=== PATIENT | male | born 1995 | race Caucasian/White ===

== ENCOUNTER 2019-08-08 14:09 | Inpatient (IN) | payer OTHER ==
[~2019-08-08] VITALS: Ht 182.8 cm; Wt 52.0 kg
--- NOTE | 2019-08-08 15:25 | NUR ---
23 year old MALE admitted to room # 530 for stabilization. Reports an addiction to CRACK/COCAINE last used 12 hours prior to admission. Compliant with admission procedure. Patient denies withdrawal symptoms at this time, but states he is starting to feel anxious. See assessment forms for additional information about patient status.
[2019-08-08] MEDS ORDERED: SUBOXONE 8 MG-1 EACH SL (15:27)
--- NOTE | 2019-08-08 16:18 | NUR ---
PATIENT MEETS [facility]. CINA=16. PATIENT WANTS TO FOLLOW UP WITH [facility] IN [place] FOR HIS AFTERCARE PLAN. NIDHI NUNEZ B.A. CADDYMASTER
[2019-08-08 17:18] LABS: BASO % 0.4 % (0.0-1.0); EOS # 0.3 10*3/uL (0.0-0.4); EOS % 3.7 % (1.0-4.0); HEMATOCRIT 42.7 % (42.0-52.0); HEMOGLOBIN 14.3 g/dl (14.0-18.0); LYMPH # 2.4 10*3/uL (1.3-4.4); LYMPH % 34.7 % (27.0-41.0); MEAN CELL VOLUME 102.4 fl (80.0-94.0); MEAN CORPUSCULAR HGB 34.3 pg (27.0-31.0); MEAN CORPUSCULAR HGB CONC 33.5 g/dl (33.0-37.0); MEAN PLATELET VOLUME 9.1 fl (9.6-12.3); MONO # 0.5 10*3/uL (0.1-1.0); MONO % 6.9 % (3.0-9.0); NEUT # 3.8 10*3/uL (2.3-7.9); NEUT % 54.2 % (47.0-73.0); PLATELET COUNT AUTOMATED 216 10*3/uL (130-400); RED BLOOD COUNT 4.17 10*6/uL (4.50-5.90)
[2019-08-08 17:28] LABS: INTERNATIONAL NORM RATIO 0.9 (2.0-3.5)
[2019-08-08 17:32] LABS: ALBUMIN 4.1 gm/dl (3.1-4.5); ALKALINE PHOSPHATASE 81 U/L (45-117); BUN 14 mg/dl (7-24); CHLORIDE 107 mmol/L (98-107); CREATININE 0.78 mg/dL (0.70-1.30); POTASSIUM 3.6 mmol/L (3.5-5.1); SGOT/AST 19 IU/L (3-35); SGPT/ALT 16 U/L (12-78); SODIUM 140 mmol/L (136-145); TOTAL PROTEIN 7.7 gm/dL (6.4-8.2)
[2019-08-08 17:45] LABS: BILIRUBIN NEGATIVE (NEGATIVE); BLOOD NEGATIVE (NEGATIVE); CLARITY SL CLOUDY (CLEAR); COLOR YELLOW (YELLOW); GLUCOSE NEGATIVE (NEGATIVE); KETONE NEGATIVE (NEGATIVE); LEUKO ESTERASE NEGATIVE (NEGATIVE); NITRITE NEGATIVE (NEGATIVE); PH 5.5 (5.0-9.0); UROBILINOGEN 0.2 E.U./dl (0.2-1.0)
[2019-08-08 17:48] LABS: ETHYL ALCOHOL < 3.0 mg/dl (<3)
[2019-08-08 17:53] LABS: URINE AMPHETAMINES < 1000 (1000ng/ml); URINE BARBITURATES < 200 (200ng/ml); URINE BENZODIAZEPINES < 200 (200ng/ml); URINE CANNABINOIDS (THC) < 50 (50ng/ml); URINE COCAINE > 300 (300ng/ml); URINE METHADONE < 300 (300ng/ml); URINE OPIATES < 300 (300ng/ml)
[2019-08-08 17:54] LABS: URINE PHENCYCLIDINE < 25 (25ng/ml)
[2019-08-08 18:04] LABS: EPITHELIAL CELLS 0-2
[2019-08-08 20:00] VITALS: BP 116/59
--- NOTE | 2019-08-08 21:00 | NUR ---
IN TO ASSESS PATIENT. PATIENT DIFFICULT TO AROUSE. WHEN AROUSED, HE STATED THAT ATIVAN IS REALLY KNOCKING HIM OUT AND WOULD REALLY LIKE TO NOT TAKE IT RIGHT NOW. CALL LIGHT WITHIN REACH, VSS. WILL MONITOR
--- NOTE | 2019-08-08 21:12 | NUR ---
SPOKE WITH DR. NO PERTAINING TO PATIENTS SCRIPT FOR SUBOXONE. STATD HE TAKES IT TWICE A DAY BUT IT WAS PUT IN FOR ONCE DAILY. HE STATED IT WAS OK TO CHANGE
--- NOTE | 2019-08-08 22:22 | NUR ---
NOTIFIED DR. PUENTES AT THIS TIME THAT PATIENT WAS DIFFICULT TO AROUSE EARLIER AND THAT HE ISN'T SURE IF HE WANTS TO TAKE ATIVAN ANYMORE BECAUSE ITS MAKING HIM EXTREMELY DROWSY. THIS NURSE STAED SHE WOULD WAIT TO SEE HOW THE PATIENT WAS DOING AT 2AM WHEN HIS NEXT DOSE
[2019-08-09] VITALS: BP 105/47
--- NOTE | 2019-08-09 02:27 | NUR ---
PT STILL SLEEPING. LETHARGIC WHEN WOKEN UP BUT RESPONSIVE. CALL LIGHT WITHIN REACH, WILL MONITOR
--- NOTE | 2019-08-09 02:33 | NUR ---
NOTIFIED DR. KIRK AT THIS TIME THAT PATIENT IS STILL EXTREMELY LETHARGIC. HE STATED TO DISCONTINUE THE PO SCHEDULED ATIVAN AND MAKE THE ATIVAN Q4H PRN JUST INCASE THE PATIENT WERE TO NEED THE ATIVAN AT SOME POINT
--- NOTE | 2019-08-09 03:36 | NUR ---
PATIENT CONTINUES TO SLEEP. NO DISTRESS NOTED. BREATHING IS EASY AND REGULAR ON ROOM AIR. CALL LIGHT WITHIN REACH
[2019-08-09 04:00] VITALS: BP 91/65
--- NOTE | 2019-08-09 06:00 | NUR ---
PATIENT HAD JUUL PODS SITTING ON BEDSIDE TABLE. ASKED PATIENT IF HE IS USING THE JUUL. HE SAID NO, IT WAS JUST WITH HIM. THIS NURSE ASKED FOR HIM TO PUT IT AWAY, OR WE WILL HAVE TO TAKE IT. HE VERBALIZED UNDERSTANDING. THIS NURSE ASKED IF HE WOULD LIKE NICTOINE SUPPLEMENT LIKE A PATCH GUM OR INHALER. HE STATED HED REALLY LIKE TO TRY THE GUM OR INHALER.
--- NOTE | 2019-08-09 07:21 | NUR ---
NOTIFIED DR. PELLETIER OF PATIENT REQUESTING TO TRY THE GUM OF THE INHALER FOR A NICOTINE SUPPLEMENT. SHE STATED SHE WOULD PUT IT IN
[2019-08-09 08:00] VITALS: BP 108/62
[2019-08-09 12:00] VITALS: BP 111/56
--- NOTE | 2019-08-09 14:44 | NUR ---
PATIENT IS GOING TO [facility] FOR HIS AFTERCARE PLAN. PATIENT AGREES AND UNDERSTANDS HIS AFTERCARE PLAN. PATIENT REPORTS THAT FAMILY WILL PICK HIM UP ONCE DISCHARGED. PATIENT AGREES AND UNDERSTANDS HIS AFTERCARE PLAN. NIDHI NUNEZ B.A. GAS CUTTER
--- NOTE | 2019-08-09 15:00 | NUR ---
ASSUMED CARE FOR THIS PT AT THIS TIME. DENIES ANY S/S OF WITHDRAWALS. NO C/O VOICED. CALL LIGHT IN REACH. PT TEACHING GIVEN ON THERMOSTAT IN ROOM AND LOCATION.
[2019-08-09 16:00] VITALS: BP 106/50
[2019-08-09 20:00] VITALS: BP 103/58
--- NOTE | 2019-08-09 21:51 | NUR ---
PT RESTING QUIETLY IN BED.
[2019-08-10] VITALS: BP 114/68
[2019-08-10 08:00] VITALS: BP 105/61
[2019-08-10 12:00] VITALS: BP 110/72
[2019-08-10] MEDS ORDERED: ATARAX,VISTARIL50 MG PO (14:10)
== END 2019-08-10 15:56 | disposition home or self-care (01) | DRG 774 ==
LOC: 5E 14:09
PROVIDERS: Hospitalist; ADMIT Internal Medicine
DX: F14.10 Cocaine abuse, uncomplicated (principal); F17.219 Nicotine dependence, cigarettes, with unspecified nicotine-induced disorders; R63.6 Underweight; R00.1 Bradycardia, unspecified; F41.9 Anxiety disorder, unspecified; Z80.6 Family history of leukemia; Z71.6 Tobacco abuse counseling; Z68.1 Body mass index [BMI] 19.9 or less, adult

== ENCOUNTER 2020-02-07 15:31 | Inpatient (IN) | payer OTHER ==
[~2020-02-07] VITALS: Ht 182.9 cm; Wt 53.1 kg
[~2020-02-07 15:31] MED LIST: ATARAX,VISTARIL50 MG PO; SUBOXONE 8 MG-1 EACH SL
--- NOTE | 2020-02-07 16:38 | NUR ---
PATIENT MEETS [facility]. CINA=15. PATIENT IS GOING TO [facility] IN [place] FOR HIS AFTERCARE PLAN. PATIENT'S HAS A SCHEDULED APPOINTMENT ON MONDAY, January. PATIENT AGREES AND UNDERSTANDS HIS AFTERCARE PLAN. NIDHI NUNEZ B.A. RESEARCH PROJECT MANAGER
[2020-02-07 16:50] LABS: BASO % 0.4 % (0.0-1.0); EOS # 0.2 10*3/uL (0.0-0.4); HEMATOCRIT 40.7 % (42.0-52.0); LYMPH # 1.9 10*3/uL (1.3-4.4); LYMPH % 26.9 % (27.0-41.0); MEAN CELL VOLUME 103.6 fl (80.0-94.0); MEAN CORPUSCULAR HGB 34.6 pg (27.0-31.0); MEAN CORPUSCULAR HGB CONC 33.4 g/dl (33.0-37.0); MEAN PLATELET VOLUME 9.6 fl (9.6-12.3); MONO # 0.6 10*3/uL (0.1-1.0); MONO % 8.2 % (3.0-9.0); NEUT # 4.3 10*3/uL (2.3-7.9); NEUT % 61.2 % (47.0-73.0); PLATELET COUNT AUTOMATED 201 10*3/uL (130-400); RED BLOOD COUNT 3.93 10*6/uL (4.50-5.90)
[2020-02-07 17:04] VITALS: BP 108/70
--- NOTE | 2020-02-07 17:04 | NUR ---
24 year old FEMALE admitted to room # 516 for stabilization. Reports an addiction to CRACK COCAINE last used YESTERDAY prior to admission. Compliant with admission procedure. Patient states any anxiety, but is able to sit still, able to focus eyes on nurse during interview. See assessment forms for additional information about patient status. dr. desai notified of patient arrival to room, aware home medications and that patient uses crack cocaine. dr. desai will be in to see patient shortley
[2020-02-07 17:05] LABS: ALBUMIN 3.9 gm/dl (3.1-4.5); ALKALINE PHOSPHATASE 82 U/L (45-117); BUN 16 mg/dl (7-24); CHLORIDE 109 mmol/L (98-107); CREATININE 0.71 mg/dL (0.70-1.30); POTASSIUM 4.1 mmol/L (3.5-5.1); SGOT/AST 18 IU/L (3-35); SGPT/ALT 20 U/L (12-78); SODIUM 139 mmol/L (136-145); TOTAL PROTEIN 7.3 gm/dL (6.4-8.2)
[2020-02-07 17:10] LABS: ETHYL ALCOHOL < 3.0 mg/dl (<3)
--- NOTE | 2020-02-07 17:21 | NUR ---
PT DECLINED FULL SKIN ASSESSMENT AT THIS TIME
[2020-02-07 17:44] LABS: BACTERIA TRACE; BILIRUBIN NEGATIVE (NEGATIVE); BLOOD NEGATIVE (NEGATIVE); CLARITY SL CLOUDY (CLEAR); COLOR YELLOW (YELLOW); EPITHELIAL CELLS 0-2; GLUCOSE NEGATIVE (NEGATIVE); KETONE NEGATIVE (NEGATIVE); LEUKO ESTERASE NEGATIVE (NEGATIVE); NITRITE NEGATIVE (NEGATIVE); PH 7.5 (5.0-9.0); RBC 0-2 rbc/hpf (0-2); SPECIFIC GRAVITY 1.015 (1.005-1.030); UROBILINOGEN 0.2 E.U./dl (0.2-1.0); WBC 0-2 wbc/hpf (0-5)
[2020-02-07 17:45] LABS: URINE AMPHETAMINES < 1000 (1000ng/ml); URINE BARBITURATES < 200 (200ng/ml); URINE BENZODIAZEPINES < 200 (200ng/ml); URINE CANNABINOIDS (THC) < 50 (50ng/ml); URINE COCAINE > 300 (300ng/ml); URINE METHADONE < 300 (300ng/ml); URINE OPIATES < 300 (300ng/ml); URINE PHENCYCLIDINE < 25 (25ng/ml)
--- NOTE | 2020-02-07 18:12 | NUR ---
IV STARTED LEFT AC #20, GOOD BLOOD RETURN, PT TOLERATED WELL. IV FLUIDS STARTED
--- NOTE | 2020-02-07 18:13 | NUR ---
PT STATES NO NEEDS AT THIS TIME, GIVEN FIRST DOSE OF LIBRIUM, PT HAS NO QUESTIONS ON MEDICATION AT THIS TIME
--- NOTE | 2020-02-07 19:50 | NUR ---
Patient resting quietly with no c/o discomfort. Respirations easy and regular. Vital signs stable. No overt distress. BEVERLY EASON
[2020-02-07 20:00] VITALS: BP 104/59
[2020-02-08] VITALS: BP 98/56
--- NOTE | 2020-02-08 00:29 | NUR ---
Patient resting. Responding to scheduled medications with fewer complaints of pain and anxiety. PT'S MVI IS COMPLETE AND HE IS REQUESTING HIS IV TO BE REMOVED.
--- NOTE | 2020-02-08 02:29 | NUR ---
24 HR chart check completed.
--- NOTE | 2020-02-08 04:08 | NUR ---
Patient resting. Responding to scheduled medications with fewer complaints of pain and anxiety.
[2020-02-08 08:00] VITALS: BP 92/61
[2020-02-08 12:00] VITALS: BP 96/57
[2020-02-08 16:00] VITALS: BP 94/60
[2020-02-08 20:00] VITALS: BP 109/57
--- NOTE | 2020-02-08 20:05 | NUR ---
PATIENT ASSESSMENT COMPLETED AT THIS TIME WITHOUT INCIDENT. PATIENT DENIES ANY CHEST PAIN/PRESSURE, SHORTNESS OF BREATH, OR WITHDRAWL SYMPTOMS AT THIS TIME. PATIENT PLEASANT AND COOPERATIVE AT THIS TIME, NO SIGNS OR SYMPTOMS OF WITHDRAWL SYMPTOMS NOTED AT THIS TIME. PATIENT REQUESTING NICOTROL INHALER AT THIS TIME, PHARMACY CONTACTED TO SEND KIT. CALL LIGHT WITHIN REACH, WILL CONTINUE TO MONITOR.
[2020-02-09] VITALS: BP 105/55
--- NOTE | 2020-02-09 00:45 | NUR ---
PATIENT RESTING IN BED IN A POSITION OF COMFORT AT THIS TIME HE DENIES ANY PAIN, DISTRESS, OR NEEDS AT THIS TIME. CALL LIGHT WITHIN REACH, WILL CONTINUE TO MONITOR.
--- NOTE | 2020-02-09 02:53 | NUR ---
24 HOUR CHART CHECK COMPLETE
[2020-02-09 08:00] VITALS: BP 118/67
--- NOTE | 2020-02-09 08:00 | NUR ---
PATIENT SLEEPING SOUNDLY AT THIS TIME; WILL REATTEMPT TO ASSESS AT LATER TIME.
[2020-02-09 12:00] VITALS: BP 97/59
--- NOTE | 2020-02-09 12:00 | NUR ---
PT RELAXED AT THIS TIME, DENIES ANY NEEDS. OFFERED PRN MEDS AT THIS TIME. PT STATES HE FEELS OK RIGHT NOW.
[2020-02-09 16:00] VITALS: BP 103/58
--- NOTE | 2020-02-09 17:30 | NUR ---
PT DENIES ANY NEED FOR MEDS AT THIS TIME. RESTING QUIETLY IN BED.
[2020-02-09 20:00] VITALS: BP 104/63
--- NOTE | 2020-02-09 21:10 | NUR ---
PATIENT ASSESSMENT COMPLETED AT THIS TIME PATIENT DENIES ANY PAIN, DISTRESS OF NEEDS AT THIS TIME. PATIENT RESTING IN BED IN A POSITION OF COMFORT. DENIES ANY WITHDRAWL SYMPTOMS AT THIS TIME AND NEED FOR PRN MEDICATIONS. CALL LIGHT WITHIN REACH WILL CONTINUE TO MONITOR.
[2020-02-10] VITALS: BP 98/48
--- NOTE | 2020-02-10 02:33 | NUR ---
24 HOUR CHART CHECK COMPLETE
[2020-02-10 08:00] VITALS: BP 109/68
--- NOTE | 2020-02-10 11:18 | NUR ---
Discharge instructions reviewed with patient. Patient receptive and verbalizes understanding. Follow-up care arranged. Written instructions given to patient. HE IS AWAITING RIDE HOME WITH HIS PARENTS TO [facility] IN [facility]. DAVIDA MALIN
--- NOTE | 2020-02-10 12:34 | NUR ---
PATIENT DISCHARGED TO [facility], AMBULATORY, FOR TRANSPORT HOME BY PRIVATE VEHICLE TO [facility] WITH HIS PARENTS.
== END 2020-02-10 12:34 | disposition home or self-care (01) | DRG 773 ==
LOC: 5E 15:31
PROVIDERS: Internal Medicine; ADMIT Internal Medicine
DX: F14.23 Cocaine dependence with withdrawal (principal); F17.210 Nicotine dependence, cigarettes, uncomplicated; R63.6 Underweight; R00.1 Bradycardia, unspecified; D53.9 Nutritional anemia, unspecified; F11.21 Opioid dependence, in remission; E87.8 Other disorders of electrolyte and fluid balance, not elsewhere classified; Z71.6 Tobacco abuse counseling; Z80.6 Family history of leukemia; Z83.49 Family history of other endocrine, nutritional and metabolic diseases; Z68.1 Body mass index [BMI] 19.9 or less, adult